=== PATIENT | male | born 1950 ===

== ENCOUNTER 2022-10-10 08:00 | Outpatient (RCR) | payer MEDICARE, OTHER, SELFPAY | END 2022-10-11 23:59 | disposition home or self-care (01) | LOC: CR 08:00 | PROVIDERS: Visit Provider Internal Medicine Cardiovascular Disease | DX: I50.23 Acute on chronic systolic (congestive) heart failure (principal); I48.91 Unspecified atrial fibrillation; Z51.89 Encounter for other specified aftercare | CPT/HCPCS: S9472 ==

== ENCOUNTER 2022-11-09 08:28 | Outpatient (RCR) | payer MEDICARE, OTHER, SELFPAY | END 2022-11-10 23:59 | disposition home or self-care (01) | LOC: CR 08:28 | PROVIDERS: Visit Provider Internal Medicine Cardiovascular Disease | DX: I50.23 Acute on chronic systolic (congestive) heart failure (principal); Z51.89 Encounter for other specified aftercare | CPT/HCPCS: S9472 ==

== ENCOUNTER 2022-12-07 08:00 | Outpatient (RCR) | payer MEDICARE, OTHER, SELFPAY | END 2022-12-11 23:59 | disposition home or self-care (01) | LOC: CR 08:00 | PROVIDERS: Visit Provider Internal Medicine Cardiovascular Disease | DX: I50.23 Acute on chronic systolic (congestive) heart failure (principal); Z51.89 Encounter for other specified aftercare | CPT/HCPCS: S9472 ==

== ENCOUNTER 2023-01-09 08:24 | Outpatient (RCR) | payer MEDICARE, OTHER, SELFPAY | END 2023-01-10 23:59 | disposition home or self-care (01) | LOC: CR 08:24 | PROVIDERS: Visit Provider Internal Medicine Cardiovascular Disease | DX: I50.23 Acute on chronic systolic (congestive) heart failure (principal); Z51.89 Encounter for other specified aftercare | CPT/HCPCS: S9472 ==

== ENCOUNTER 2023-01-14 08:12 | Outpatient (RCR) | payer MEDICARE, OTHER, SELFPAY | END 2023-02-10 23:59 | disposition home or self-care (01) | LOC: CR 08:12 | PROVIDERS: Visit Provider Internal Medicine Cardiovascular Disease | DX: I50.23 Acute on chronic systolic (congestive) heart failure (principal); Z51.89 Encounter for other specified aftercare | CPT/HCPCS: S9472 ==

== ENCOUNTER 2023-01-17 08:12 | Outpatient (RCR) | payer SELFPAY ==
[2023-01-17 08:16] VITALS: BP 187/74; PULSE 51
== END 2023-02-10 23:59 | disposition home or self-care (01) ==
LOC: CR 08:12
PROVIDERS: Visit Provider Internal Medicine Cardiovascular Disease
DX: R69 Illness, unspecified (principal)